=== PATIENT | female | born 1945 | race Caucasian/White ===

== ENCOUNTER 2018-03-07 06:50 | Day surgery (SDC) | payer MEDICARE, OTHER, SELFPAY ==
[2018-03-07] VITALS (7 sets, daily range): BP systolic 119–154; BP diastolic 52–98; PULSE 71–88; RESP 12–18; TEMP 36.3–37.7; O2SAT 92–95; BMI 36.1
--- NOTE | 2018-03-07 | LES_PTH ---
PATIENT: GAVIN LOPEZ LOC: [facility] [place] U#:[id number] AGE/SX: 72/F ROOM: RE03/07/[address]: Dr. Aleksey Acosta MD : 1945 BED: DIS: 03/07/2018 SPEC #: [id number] RECD: 03/07/18 08:52 STATUS: MILTON JOSE #: [id number] TU: 03/07/18 00:[address]: Aleksey Acosta DEPT: SURGICAL PATHOLOGY RECD BY: Joyce Martins ENTERED: 03/07/18 10:57 SP TYPE: Lesion OTHR DR: Dr. Bandar Alvares MD Tissues: A - Skin of forehead B - Skin of lip, NOS C - Skin of nose, NOS D - Skin of nose, NOS Procedures: Frozen Section (charge) Frozen Section Add'l ([facility]) Surgery Specimen Level IV HEADER OPERATION: Excision lesions, left nasal tip, right medial forehead, right upper lip PRE-OP DIAGNOSIS: Neoplasm of skin of nasal tip; Neoplasm of skin of forehead; Neoplasm of unspecified behavior of bone, soft tissue and skin TISSUE SUBMITTED: A - Right medial forehead by eyebrow collected at 0845, sent to lab for FS at 0847, B - Lesion right perialar/upper lip collected at 0850, sent to lab for FS at 0856, C - Lesion left nasal tip collected at 0852, sent to lab for FS at 0856, D - Basal cell cancer left nasal tip, suture at 12 o'clock FROZEN SECTION DIAGNOSIS A. Right medial forehead by eyebrow lesion, biopsy: Intradermal nevus. B. Lesion, perialar/upper lip area, biopsy: Intradermal nevus. C. Lesion, left nasal tip, biopsy: Basal cell carcinoma. Intradermal nevus. JOSEMANUEL:paola 03/07/18 MICROSCOPIC DIAGNOSIS A. Right medial forehead by eyebrow lesion, biopsy: Intradermal nevus. B. Lesion right perialar/upper lip area, biopsy: Intradermal nevus. C. Lesion at left nasal tip, biopsy: Basal cell carcinoma. Intradermal nevus. Solar elastosis. D. Basal cell carcinoma left nasal tip, excisional biopsy: Negative for residual carcinoma. Focal ulceration, consistent with site of specimen C. Solar elastosis. JOSEMANUEL:paola 03/10/18 MICROSCOPIC DESCRIPTION Slides are reviewed. GROSS DESCRIPTION A - Received fresh for frozen section diagnosis labeled with the patient's name is a specimen designated right medial forehead by right eyebrow. The specimen consists of a piece of bettencourt-white skin ellipse measuring 0.7 x 0.5 x 0.2 cm. The specimen is inked, bisected and submitted entirely for frozen section diagnosis in one cassette. / : 03/07/18 B - Received fresh for frozen section diagnosis labeled with the patient's name is a specimen designated lesion right perialar/upper lip area. The specimen consists of a piece of bettencourt-white skin measuring 0.5 x 0.5 x 0.2 cm. The specimen is submitted entirely for frozen section diagnosis in one cassette. / : 03/07/18 C - Received fresh for frozen section diagnosis labeled with the patient's name is a specimen designated lesion left nasal tip. The specimen consists of a piece of bettencourt-white skin measuring 1.2 x 1 x 0.2 cm. Two lesions are noted on the surface measuring 0.7 and 0.5 cm in greatest dimension. The specimen is inked, serially sectioned and submitted for frozen section diagnosis in two cassettes with each cassette containing one lesion. / : 03/07/18 D - Received in fixative is one container labeled with the patient's name and designated basal cell carcinoma left nasal tip, suture at 12 o'clock. The specimen consists of an ovoid piece of bettencourt-white skin measuring 1.7 x 1.5 cm and up to 0.3 cm in thickness. The specimen is inked as follows: 12-3 o'clock - black, 3-6 o'clock - blue, 6-9 o'clock - green and 9-12 o'clock - yellow. The specimen is serially sectioned and submitted entirely in two cassettes as follows: 1 - 12 and 6 o'clock margins, 2 - rest of the specimen. / : 03/07/18 TC:0 CPT: 04678 x4, 44398, 11601
[2018-03-07] MEDS: Silver Nitrate (BKC) 1 EACH (09:18)
[2018-03-07] MEDS: Mupirocin Ointment 22gm Tube 1 APPLIC (09:32)
--- NOTE | 2018-03-07 09:40 | OP.PN_ITS ---
Immediate Post-Op Note Date of Procedure: 03/07/18 Primary Surgeon/Physician: Aleksey Acosta paint [employer] worker: None Pre-Operative Diagnosis: 1. 1.6 mm lesion left nasal tip. 2. 7 mm lesion right medial forehead by the eyebrow. 3. 5 mm lesion right perialar/upper lip area. Post-Operative Diagnosis: 1. 1.6 mm basal cell carcinoma left nasal tip. 2. 7 mm intradermal nevus right medial forehead by the eyebrow. 3. 5 mm intradermal nevus right perialar/upper lip area. Surgery/Procedure Performed:: 1. Excision 1.6 mm basal cell carcinoma left nasal tip. 2. Intradermal excision 7 mm intradermal nevus right medial fo rehead by the eyebrow. 3. Intradermal excision 5 mm intradermal nevus right perialar/upper lip area. Description of Surgical Findings:: 72 year old woman presents for evaluation for TBSE. She has concerns about enlarging lesions on her left nasal tip, right medial forehead by the eyebrow, and the right perialar/upper lip area. They have become more raised in configuration and have developed irregular borders. She denies any trauma. She denies any fever. She denies any bleeding. The patient had these lesions excised and sent to Pathology as a frozen section. Frozen section showed intradermal nevi for the right medial forehead by the eyebrow lesion and the right perialar/upper lip area lesion. The left nasal tip lesion was a basal cell carcinoma. Today the patient underwent excision 1.6 mm basal cell carcinoma left nasal tip and intradermal excision 7 mm intradermal nevus right medial forehead by the eyebrow and intradermal excision 5 mm intradermal nevus right perialar/upper lip area. Frozen section left nasal tip - basal cell carcinoma. Frozen section right medial forehead by the eyebrow - intradermal nevus. Frozen section right perialar/upper lip area. Estimated Blood Loss: 15 ml. Specimen's removed: 1. Left nasal tip lesion to Pathology as a frozen section. 2. Right medial forehead by the eyebrow lesion to Pathology as a frozen section. 3. Right perialar/upper lip area to Pathology as a frozen section. 4. Basal cell carcinoma left nasal tip to Pathology. Drains: None. Type of Anesthesia:: General - Admit VTE Documentation VTE Present on Admission: No VTE Mechan Device Prophylaxis: SCD's VTE Pharm Prophylaxis ordered?: No
--- NOTE | 2018-03-07 09:53 | PCM.DC ---
You will use the following diet at home:: No restrictions Discharge Activity: May not drive while taking narcotic pain medications., May Shower - in two days from the neck down and wash face gently in the sink and wash hair gently in the sink until the nasal dressing is removed in the office., - - keep head elevated. no heavy lifting. May shower in (days): 2 - from the neck down. May resume sexual activity in: No Restrictions Ice area for (Minutes): 5 - as needed for facial swelling. Weight Bearing Status: Weight bearing as tolerated Lifting Restrictions: 20 lbs. Keep extremity elevated above heart level: - - elevate head. Call your doctor if your incision/area has: Continuous Slow Oozing, Sudden Increased Bleeding, Increased Pain/ Swelling, Increased Redness, Foul Smelling Discharge, Swelling at the incision site Call your doctor if you observe: Fever of 101 or Higher, Coldness, Increased Pain, Shortness of breath, Chest pain, Calf discomfort, Uncontrolled pain Suture Line Care: - - apply antibiotic ointment to the forehead and upper lip wounds daily. daily silver dressing changes to left nasal tip after operative dressing removed in the office. Change Dressing in (Days):: 3 - will change operative dressing in the office. Cleanse incision/area with: - - may shower in two days from the neck down. may get the nasal wound wet in the shower after the operative dressing is removed in the office. Allergies/Adverse Reactions: Allergies Sulfa (Sulfonamide Antibiotics) Allergy (Severe, Verified 03/07/18 07:29) ALLERGY acetaminophen [From Percocet] Allergy (Mild, Verified 03/07/18 07:29) Abd cramps/diarrhea oxycodone [From Percocet] Allergy (Mild, Verified 03/07/18 07:29) Abd cramps/diarrhea Medications to take at Discharge lovastatin 40 mg tablet 40 mg PO QDAY 12/25/17 multivitamin tablet 1 tab PO QDAY 12/25/17 pantoprazole 20 mg tablet,delayed release 20 mg PO QDAY 12/25/17 sertraline 100 mg tablet 100 mg PO QDAY 12/25/17 Albuterol Inhaler [Ventolin Hfa] 1 - 2 puff INHALATION Q4H PRN PRN 03/05/18 Omega3/Dha/Epa/Fish Oil/Vit D3 [Hyden-3 + Vitamin D3 Softgel] 1 each PO DAILY 03/05/18 Clindamycin HCl [Cleocin] 300 mg PO Q6H #21 cap 03/07/18 Lactobacillus Acidophilus/Fos [Acidophilus Probiotic Tablet] 1 ea PO BID #30 tab 03/07/18 Oxycodone HCl/Acetaminophen [Percocet 5/325] 1 - 2 tab PO 4X/DAY PRN PRN 4 Days #30 tab 03/07/18 The following prescriptions were given: Oxycodone HCl/Acetaminophen [Percocet 5/325] 1 - 2 tab PO 4X/DAY PRN PRN 4 Days #30 tab PRN Reason: Pain Lactobacillus Acidophilus/Fos [Acidophilus Probiotic Tablet] 1 ea PO BID #30 tab Clindamycin HCl [Cleocin] 300 mg PO Q6H #21 cap Primary Care Physician: Bandar Alvares MD [Primary Care Provider] - Test Results: Test results from this visit will be discussed in further detail at your follow-up appointment, if applicable. Please Follow Up With: Aleksey Acosta MD When: early next week. call [phone] for appt. Proposed Discharge Date: 03/07/18
--- NOTE | 2018-03-07 09:57 | DCINST_ITS ---
You will use the following diet at home:: No restrictions Discharge Activity: May not drive while taking narcotic pain medications., May Shower - in two days from the neck down and wash face gently in the sink and wash hair gently in the sink until the nasal dressing is removed in the office., - - keep head elevated. no heavy lifting. May shower in (days): 2 - from the neck down. May resume sexual activity in: No Restrictions Ice area for (Minutes): 5 - as needed for facial swelling. Weight Bearing Status: Weight bearing as tolerated Lifting Restrictions: 20 lbs. Keep extremity elevated above heart level: - - elevate head. Call your doctor if your incision/area has: Continuous Slow Oozing, Sudden Increased Bleeding, Increased Pain/ Swelling, Increased Redness, Foul Smelling Discharge, Swelling at the incision site Call your doctor if you observe: Fever of 101 or Higher, Coldness, Increased Pain, Shortness of breath, Chest pain, Calf discomfort, Uncontrolled pain Suture Line Care: - - apply antibiotic ointment to the forehead and upper lip wounds daily. daily silver dressing changes to left nasal tip after operative dressing removed in the office. Change Dressing in (Days):: 3 - will change operative dressing in the office. Cleanse incision/area with: - - may shower in two days from the neck down. may get the nasal wound wet in the shower after the operative dressing is removed in the office. Allergies/Adverse Reactions: Allergies Sulfa (Sulfonamide Antibiotics) Allergy (Severe, Verified 03/07/18 07:29) ALLERGY acetaminophen [From Percocet] Allergy (Mild, Verified 03/07/18 07:29) Abd cramps/diarrhea oxycodone [From Percocet] Allergy (Mild, Verified 03/07/18 07:29) Abd cramps/diarrhea Medications to take at Discharge lovastatin 40 mg tablet 40 mg PO QDAY 12/25/17 multivitamin tablet 1 tab PO QDAY 12/25/17 pantoprazole 20 mg tablet,delayed release 20 mg PO QDAY 12/25/17 sertraline 100 mg tablet 100 mg PO QDAY 12/25/17 Albuterol Inhaler [Ventolin Hfa] 1 - 2 puff INHALATION Q4H PRN PRN 03/05/18 Omega3/Dha/Epa/Fish Oil/Vit D3 [[place]-3 + Vitamin D3 Softgel] 1 each PO DAILY 03/05/18 Clindamycin HCl [Cleocin] 300 mg PO Q6H #21 cap 03/07/18 Lactobacillus Acidophilus/Fos [Acidophilus Probiotic Tablet] 1 ea PO BID #30 tab 03/07/18 Oxycodone HCl/Acetaminophen [Percocet 5/325] 1 - 2 tab PO 4X/DAY PRN PRN 4 Days #30 tab 03/07/18 The following prescriptions were given: Oxycodone HCl/Acetaminophen [Percocet 5/325] 1 - 2 tab PO 4X/DAY PRN PRN 4 Days #30 tab PRN Reason: Pain Lactobacillus Acidophilus/Fos [Acidophilus Probiotic Tablet] 1 ea PO BID #30 tab Clindamycin HCl [Cleocin] 300 mg PO Q6H #21 cap Primary Care Physician: Bandar Alvares MD [Primary Care Provider] - Test Results: Test results from this visit will be discussed in further detail at your follow- up appointment, if applicable. Please Follow Up With: Aleksey Acosta MD When: early next week. call [phone] for appt. Proposed Discharge Date: 03/07/18
--- NOTE | 2018-03-08 22:32 | OP.PCM_ITS ---
Report of Operation Date of Procedure: 03/07/18 Pre-Operative Diagnosis: 1. 1.6 mm lesion left nasal tip. 2. 7 mm lesion right medial forehead by the eyebrow. 3. 5 mm lesion right perialar/upper lip area. Post-Operative Diagnosis: 1. 1.6 mm basal cell carcinoma left nasal tip. 2. 7 mm intradermal nevus right medial forehead by the eyebrow. 3. 5 mm intradermal nevus right perialar/upper lip area. Surgery/Procedure Performed:: 1. Excision 1.6 mm basal cell carcinoma left nasal tip. 2. Intradermal excision 7 mm intradermal nevus right medial forehead by the eyebrow. 3. Intradermal excision 5 mm intradermal nevus right perialar/upper lip area. Description of Surgical Findings:: 72 year old woman presents for evaluation for TBSE. She has concerns about enlarging lesions on her left nasal tip, right medial forehead by the eyebrow, and the right perialar/upper lip area. They have become more raised in configuration and have developed irregular borders. She denies any trauma. She denies any fever. She denies any bleeding. Patient was informed of the risks and complications of the procedure including alternatives to surgery. These were discussed with the patient personally. Patient voices understanding and wishes to proceed. Some of the risks and complications were included in a form from the [employer]. Frozen section left nasal tip - basal cell carcinoma. Frozen section right medial forehead by the eyebrow - intradermal nevus. Frozen section right perialar/upper lip area - intradermal nevus. director of rehabilitation: None Type of Anesthesia:: General Specimen's removed: 1. Left nasal tip lesion to Pathology as a frozen section. 2. Right medial forehead by the eyebrow lesion to Pathology as a frozen secti on. 3. Right perialar/upper lip area to Pathology as a frozen section. 4. Basal cell carcinoma left nasal tip to Pathology. Drains: None. Estimated Blood Loss (mL): 15 ml. Description of Procedure: Patient was taken to OR in supine position and was placed under general anesthesia. The face was prepped and draped in the usual fashion. SCD's were placed for DVT prophylaxis. Perioperative antibiotics were given intravenously. Using xylocaine with epinephrine, the lesions on the left nasal tip, right medial forehead by the eyebrow, and right perialar/upper lip area were infiltrated. After waiting 5 minutes for the anesthetic to take effect, these three lesions were excised in an intradermal fashion and sent to Pathology as a frozen section. Frozen section showed basal cell carcinoma for the left nasal tip. The lesions right medial forehead by the eyebrow and right perialar/upper lip area were both intradermal nevi and no carcinoma seen. For the basal cell carcinoma left nasal tip, further excision will be done with a 3 mm margin in all directions thus making it a 2.2 cm excision. The excision extended into the subcutaneous tissue. A suture was placed at 12 oclock position for pathology orientation. The lesion was sent to Pathology for analysis to rule out carcinoma at the margins. Hemostasis was obtained with electrocautery. The wound was packed with Aquacel Silver. 4-0 Nylon suture was used for tie over stent suture dressing. For the right medial forehead by the eyebrow lesion and the right perialar/upper lip area lesion, hemostasis was obtained with silver nitrate chemical cauterization. Antibiotic ointment was applied. Patient tolerated the procedure well and was sent to PACU in satisfactory condition. Patient will be sent home on antibiotics and pain medication. Patient will keep her head elevated during the initial postop period. Patient will followup early next week for a wound check and for discussion of the pathology report. Will also instruct the patient on the Silver dressing changes. Once the pathology report is available, she will proceed with the first stage complex nasal reconstruction with a forehead flap and cartilage grafting for support. The excision today did not involve the nasal lining. Grafts/Implants Used: None. - Complications None. - Admit VTE Documentation VTE Present on Admission: No VTE Mechan Device Prophylaxis: SCD's VTE Pharm Prophylaxis ordered?: No Code Visit Surgery Charges CPT - 89421 ICD-10 - C44.311 88148 D22.39 64365 D22.0
== END 2018-03-07 12:10 | disposition home or self-care (01) ==
LOC: SDC 06:51 → AC 06:52
PROVIDERS: Family Provider Family Medicine; PCP Family Medicine; Referring Provider Surgery; Visit Provider Surgery
PROC: (CPT 11442; principal; 2018-03-07 08:20)
DX: C44.311 Basal cell carcinoma of skin of nose (principal); D22.39 Melanocytic nevi of other parts of face; D22.0 Melanocytic nevi of lip; D49.2 Neoplasm of unspecified behavior of bone, soft tissue, and skin; K21.9 Gastro-esophageal reflux disease without esophagitis; L57.8 Other skin changes due to chronic exposure to nonionizing radiation; W89.9XXA Exposure to unspecified man-made visible and ultraviolet light, initial encounter; Y93.9 Activity, unspecified; Y92.89 Other specified places as the place of occurrence of the external cause; Y99.9 Unspecified external cause status; L98.499 Non-pressure chronic ulcer of skin of other sites with unspecified severity; R35.0 Frequency of micturition; R32 Unspecified urinary incontinence
CPT/HCPCS: 00300; 11442; 11643; 88305; 88331; 88332; J7120; J2405

== ENCOUNTER 2018-04-03 17:22 | Observation (INO) | payer MEDICARE, OTHER, SELFPAY ==
--- NOTE | 2018-04-02 19:12 | HP.PCM_ITS ---
History and Physical Date of Admission: 04/03/18 Allergies Sulfa (Sulfonamide Antibiotics) Allergy (Severe, Verified 02/27/18 13:37) ALLERGY acetaminophen [From Percocet] Allergy (Mild, Verified 02/27/18 13:37) Abd cramps/diarrhea oxycodone [From Percocet] Allergy (Mild, Verified 02/27/18 13:37) Abd cramps/diarrhea Medications cholecalciferol (vitamin D3) 2,000 unit capsule 2,000 unit PO QDAY 12/25/17 [History Confirmed 02/27/18] lovastatin 40 mg tablet 40 mg PO QDAY 12/25/17 [History Confirmed 02/27/18] multivitamin tablet 1 tab PO QDAY 12/25/17 [History Confirmed 02/27/18] omega-3 fatty acids-fish oil 684 mg-1,200 mg capsule,delayed release cap PO .QD cap 12/25/17 [History Confirmed 02/27/18] pantoprazole 20 mg tablet,delayed release 20 mg PO QDAY 12/25/17 [History Confirmed 02/27/18] sertraline 100 mg tablet 100 mg PO QDAY 12/25/17 [History Confirmed 02/27/18] PFSH Medical History Anxiety and depression (Acute) Asthma (Acute) GERD (gastroesophageal reflux disease) (Acute) Murmur (Acute) Urinary tract infection (Acute) Surgical History Broken foot (Acute) Broken jaw (Acute) History of appendectomy (Acute) History of bladder surgery (Acute) History of tonsillectomy (Acute) Family History Mother History of blood clots Diabetes Heart disease Hypertension COPD (chronic obstructive pulmonary disease) Father Depression Hypertension Social History Smoking Status: Never smoker alcohol intake: current substance use type: does not use additional social history: DOES USE ASPIRIN DOES USE IBUPROFEN HPI HISTORY OF PRESENT ILLNESS 72 year old woman initially presented for evaluation for TBSE. She has concerns about enlarging lesions on her left nasal tip. It was biopsied and found to be a basal cell carcinoma. She underwent excision basal cell carcinoma left nasal tip on 03/07/18. The wound was left open until the final pathology was available. Pathology was negative for residual carcinoma and was completely excised. Wound care was started postop with Silver dressing changes. She presents today for the first stage of her complex nasal reconstruction with a forehead flap and cartilage grafting for support. REVIEW OF SYSTEMS General - Denies fever, fatigue, and weight loss. Eyes - Denies cataracts and glaucoma. ENT - Denies nasal congestion and sore throat. Endocrine - Has excessive thirst and urination. Skin - Denies skin cancer. Has enlarging lesions left nasal tip, right medial forehead by the eyebrow, and the right perialar/upper lip area. Musculoskeletal - Denies joint pain, joint stiffness, weakness of muscles and joints, back pain, and arthritis. Neuro - Denies headaches. Cardiovascular - Denies chest pain, fatigue, and shortness of breath with exertion. Psych - Denies anxiety and depression. Respiratory - Denies chronic cough. Has shortness of breath. Has asthma. Gastrointestinal - Denies nausea, vomiting, diarrhea, and constipation. Hematologic - Denies abnormal bruising and bleeding. Genitourinary - Denies hematuria. Has urinary frequency. Has incontinence. PHYSICAL EXAMINATION General - Alert and Oriented HEENT - PERRL. EOMI. Throat is clear. On the left nasal tip is a basal cell carcinoma wound that measured 2.2 cm initially and now measures 2 cm. Some healing has occurred. The wound is about 3 mm from the left nasal alar rim. Neck - Supple and nontender. No cervical adenopathy. No suspicious lesions noted. Lungs - Clear to auscultation. Heart - Regular rate and rhythm. Abdomen - Soft and nondistended. Extremities - FROM. No axillary adenopathy. Radial pulses are palpable. No suspicious lesions noted. Neuro - CN II-XII grossly intact. Psych - Normal mood and affect. ASSESSMENT 2.2 cm basal cell carcinoma wound left nasal tip and lateral sidewall. PLAN Patient presents today for the first stage of her complex nasal reconstruction which is formation of a forehead flap to provide soft tissue for the left nasal tip basal cell carcinoma wound defect. Will also need cartilage grafting for support. If we can preserve the nasal alar rim, we won't need any mucosal lining flaps. If the remaining tissue extending to the rim is removed with a partial rhinectomy, then mucosal lining flaps would be needed and mucoperichondrial flaps may be needed as well. Skin grafting is another choice as well. Surgery will be done under general anesthesia with a surgical observation overnight stay in the hospital. The second stage of the complex nasal reconstruction will be in about 3 weeks with a division and inset of the flap and will be done on an outpatient basis under general anesthesia. Patient was informed of the risks and complications of the procedure including alternatives to surgery. These were discussed with the patient personally. Patient voices understanding and wishes to proceed. Some of the risks and complications were included in a form from the [employer].
[2018-04-03] VITALS (10 sets, daily range): BP systolic 121–181; BP diastolic 52–67; PULSE 68–90; RESP 12–18; TEMP 36.3–37.1; O2SAT 91–99; BMI 36.1; BMI 37.1
--- NOTE | 2018-04-03 | LES_PTH ---
PATIENT: GAVIN LOPEZ LOC: [facility] U#:[id number] AGE/SX: 72/F ROOM: IL324 RE04/03/[address]: Dr. Aleksey Acosta MD : 1945 BED: 1 DIS: 04/04/2018 SPEC #: [id number] RECD: 04/04/18 12:09 STATUS: MILTON REAlexis #: [id number] TU: 04/03/18 00:[address]: Aleksey Acosta DEPT: SURGICAL PATHOLOGY RECD BY: Moshe Mercado ENTERED: 04/04/18 12:09 SP TYPE: Lesion OTHR DR: Dr. Bandar Alvares MD Tissues: Skin of nose, NOS Procedures: Surgery Specimen Level IV HEADER OPERATION: Left nasal tip excisional debridement of basal cell carcinoma PRE-OP DIAGNOSIS: Basal cell carcinoma wound left nasal tip TISSUE SUBMITTED: Basal cell carcinoma left nasal tip and side wall, suture at 12 o'clock MICROSCOPIC DIAGNOSIS Basal cell carcinoma left nasal tip and side wall, excisional biopsy: Negative for residual carcinoma. Focal chronic inflammation and foreign body giant cell reaction. Solar elastosis. See comment. SJ:paola 04/07/18 COMMENT The specimen also shows pieces of cartilage. Please make reference to previous specimen ([id number]), lesion at left nasal tip, biopsy with diagnosis of basal cell carcinoma and basal cell carcinoma left nasal tip, excisional biopsy with diagnosis of negative for residual carcinoma. MICROSCOPIC DESCRIPTION Slides are reviewed. GROSS DESCRIPTION Received in fixative is one container labeled with the patient's name and designated basal cell carcinoma left nasal tip and side wall, suture at 12 o'clock. The specimen consists of a thin strip of bettencourt-white skin, C-shape, measuring 2 x 0.3 cm and up to 0.4 cm in thickness. The specimen is oriented by a suture at 12 o'clock. The specimen is inked as follows: 12 o'clock margin - black, 6 o'clock margin - blue. Also present in the container are multiple fragments of bettencourt-white skin and soft tissue measuring in aggregate 1.5 x 0.5 x 0.1 cm. The entire specimen is submitted in two cassettes as follows: 1 - skin piece to be serially sectioned at the time of the embedding, 2 - rest of the specimen. / JOSEMANUEL:paola 04/04/18 TC:5 CPT: 03465
--- NOTE | 2018-04-03 08:04 | EKG12_ITS ---
Test Reason : PRE-OP Blood Pressure : / mmHG Vent. Rate : 067 BPM Atrial Rate : 067 BPM P-R Int : 172 ms QRS Dur : 092 ms QT Int : 424 ms P-R-T Axes : 056 031 064 degrees QTc Int : 448 ms Normal sinus rhythm with sinus arrhythmia Normal ECG No previous ECGs available Confirmed by PAULINE UMAÑA ([id number]), editor sound LAURIE ESCOBEDO ([id number]) on 04/08/2018 11:20:04 AM Referred By: Aleksey Acosta Confirmed By:PAULINE UMAÑA
[2018-04-03] MEDS: Mupirocin Ointment 22gm Tube 1 APPLIC (09:50)
[2018-04-03] MEDS: Methylene Blue 1% 100 MG/10 ML VIAL (11:05)
[2018-04-03] MEDS: Oxymetazoline 0.05% 1 SPRAY SPRAY.BTL 15 SPRAY (13:00)
--- NOTE | 2018-04-03 14:12 | PCM.IMDPSTOP ---
Immediate Post-Op Note Date of Procedure: 04/03/18 Primary Surgeon/Physician: Aleksey Acosta weatherization director: None Pre-Operative Diagnosis: 2.2 cm basal cell carcinoma wound left nasal tip and lateral sidewall. Post-Operative Diagnosis: Same. Surgery/Procedure Performed:: 1. Surgical preparation basal cell carcinoma wound left nasal tip and lateral sidewall with excisional debridement. 2. 1st stage complex nasal reconstruction with right paramedian forehead flap and cartilage grafting from left ear. Description of Surgical Findings:: 72 year old woman initially presented for evaluation for TBSE. She has concerns about enlarging lesions on her left nasal tip. It was biopsied and found to be a basal cell carcinoma. She underwent excision basal cell carcinoma left nasal tip on 03/07/18. The wound was left open until the final pathology was available. Pathology was negative for residual carcinoma and was completely excised. Wound care was started postop with Silver dressing changes. She presents today for the first stage of her complex nasal reconstruction with a forehead flap and cartilage grafting for support. Today the patient underwent surgical preparation basal cell carcinoma wound left nasal tip and lateral sidewall with excisional debridement and 1st stage complex nasal reconstruction with right paramedian forehead flap and cartilage grafting from left ear. IV Fluids - 1800 ml. Urine Output - 1400 ml. Size of defect upper forehead - 2.5 x 1.5 cm. I used Samara absorbable hemostat. Reference Number - [id number]. Lot Number - [id number]. Expiration - December 05, 2022. Estimated Blood Loss: 25 ml. Specimen's removed: Basal cell carcinoma wound left nasal tip and lateral sidewall to Pathology. Drains: None. Type of Anesthesia:: General - Admit VTE Documentation VTE Present on Admission: No VTE Mechan Device Prophylaxis: SCD's VTE Pharm Prophylaxis ordered?: Yes
--- NOTE | 2018-04-03 14:16 | OP.PN_ITS ---
Immediate Post-Op Note Date of Procedure: 04/03/18 Primary Surgeon/Physician: Aleksey Acosta under cutter: None Pre-Operative Diagnosis: 2.2 cm basal cell carcinoma wound left nasal tip and lateral sidewall. Post-Operative Diagnosis: Same. Surgery/Procedure Performed:: 1. Surgical preparation basal cell carcinoma wound left nasal tip and lateral sidewall with excisional debridement. 2. 1st stage complex nasal reconstruction with right paramedian forehead flap and cartilage grafting from left ear. Description of Surgical Findings:: 72 year old woman initially presented for evaluation for TBSE. She has concerns about enlarging lesions on her left nasal tip. It was biopsied and found to be a basal cell carcinoma. She underwent excision basal cell carcinoma left nasal tip on 03/07/18. The wound was left open until the final pathology was available. Pathology was negative for residual carcinoma and was completely excised. Wound care was started postop with Silver dressing changes. She presents today for the first stage of her complex nasal reconstruction with a forehead flap and cartilage grafting for support. Today the patient underwent surgical preparation basal cell carcinoma wound left nasal tip and lateral sidewall with excisional debridement and 1st stage complex nasal reconstruction with right paramedian forehead flap and cartilage grafting from left ear. IV Fluids - 1800 ml. Urine Output - 1400 ml. Size of defect upper forehead - 2.5 x 1.5 cm. I used Samara absorbable hemostat. Reference Number - [id number]. Lot Number - [id number]. Expiration - December 05, 2022. Estimated Blood Loss: 25 ml. Specimen's removed: Basal cell carcinoma wound left nasal tip and lateral sidewall to Pathology. Drains: None. Type of Anesthesia:: General - Admit VTE Documentation VTE Present on Admission: No VTE Mechan Device Prophylaxis: SCD's VTE Pharm Prophylaxis ordered?: Yes
--- NOTE | 2018-04-03 17:44 | PCM.OPRPT ---
Report of Operation Date of Procedure: 04/03/18 Pre-Operative Diagnosis: 2.2 cm basal cell carcinoma wound left nasal tip and lateral sidewall. Post-Operative Diagnosis: Same. Surgery/Procedure Performed:: 1. Surgical preparation basal cell carcinoma wound left nasal tip and lateral sidewall with excisional debridement. 2. 1st stage complex nasal reconstruction with right paramedian forehead flap and cartilage grafting from left ear. Description of Surgical Findings:: 72 year old woman initially presented for evaluation for TBSE. She has concerns about enlarging lesions on her left nasal tip. It was biopsied and found to be a basal cell carcinoma. She underwent excision basal cell carcinoma left nasal tip on 03/07/18. The wound was left open until the final pathology was available. Pathology was negative for residual carcinoma and was completely excised. Wound care was started postop with Silver dressing changes. She presents today for the first stage of her complex nasal reconstruction with a forehead flap and cartilage grafting for support. Today the patient underwent surgical preparation basal cell carcinoma wound left nasal tip and lateral sidewall with excisional debridement and 1st stage complex nasal reconstruction with right paramedian forehead flap and cartilage grafting from left ear. IV Fluids - 1800 ml. Urine Output - 1400 ml. Size of defect upper forehead - 2.5 x 1.5 cm. I used Samara absorbable hemostat. Reference Number - [id number]. Lot Number - [id number]. Expiration - December 05, 2022. look out tower fire watcher: None Type of Anesthesia:: General Specimen's removed: Basal cell carcinoma wound left nasal tip and lateral sidewall to Pathology. Drains: None. Estimated Blood Loss (mL): 25 ml. Fluids Replaced: 3200 ml (IV Fluids 1800ml, Urine Output 1400 ml). Description of Procedure: Patient was taken to OR in supine position and was placed under general anesthesia. The face and ears were prepped and draped in the usual fashion. SCD's were placed for DVT prophylaxis. Perioperative antibiotics were given intravenously. Using xylocaine with epinephrine, the left nasal tip and lateral sidewall wound was infiltrated. After waiting 5 minutes for the anesthetic to take effect, I proceeded with excisional debridement of the basal cell carcinoma wound down to the cartilage. Hemostasis was obtained with electrocautery. The debrided tissue was sent to Pathology for analysis. There was a small rent in the intranasal mucosa which was primarily repaired with 5-0 Chromic simple interrupted sutures. I took the foil from the chromic suture package and used it as my template of the nasal wound. I took a gauze and placed it in the supramedial aspect right eyebrow as my turning point for the flap to check the length needed for the forehead flap. I rotated the gauze to the nasal wound and then rotated the gauze onto the forehead. I placed the foil template at the end of the gauze rotation and oriented the foil package to make sure it would rotate exactly into the nasal wound. The length of the flap necessitated going into the frontal scalp hairline a little bit. If hair growth becomes an issue on the nose in the future, can then proceed with laser hair removal. I marked the right paramedian forehead flap with a flap base of 1.5 cm at the level of the medial eyebrow. I then used a Doppler to locate the supratrochlear artery. The signal was faint. Using xylocaine and epinephrine, I infiltrated the markings. After waiting 5 minutes for the anesthetic to take effect, I made incisions in the hairline around the template and then vertically onto the forehead. I freed up the distal portion of the flap in the subcutaneous tissue. This would allow some soft tissue on the forehead for wound care since this distal portion of the wound won't be closed and wound care will be started with Silver dressing changes. When I got to the end of the template marking, I deepened the dissection down to the periosteum to maintain the vascularity of the flap. When I got the supra-orbital ridge, I located the artery and dissected deep to it. Some of the ict support and test engineers muscle was incised to get additional length of the flap for rotation into the nasal defect with minimal tension. This also required incision into the eyebrow as well. After rotation of the flap clockwise into the defect, there was minimal tension on the flap and minimal distortion. There was also no kinking of the flap at the pivot point. I thinned out the distal portion of the flap in a conservative manner for inset into the nasal wound. After healing has occurred, if there is too much fullness in the flap, additional defatting of the flap can be done in the future. I didn't want to be too aggressive at this time and risk compromising the flap. I then undermined the forehead skin at the level of the periosteum to help with wound closure. Hemostasis was obtained with electrocautery. The forehead wound was sprayed with Samara absorbable hemostat to minimize seroma formation postoperatively. The forehead wound was then closed in multiple layers with 3-0 Vicryl figure of eight interrupted sutures for the deep muscle and fascia and with subcutaneous tissue and deep dermis. The skin was approximated with 4-0 Prolene vertical mattress interrupted sutures. I left the distal wound opened into the frontal hairline and packed it with a Silver dressing. This forehead wound measured 2.5 x 1.5 cm. For the nasal wound, there was no lining defect so no mucosal flaps or mucoperichondrial flaps would be necessary. However a cartilage graft would be necessary for support. I infiltrated the conchal area left ear with xylocaine and epinephrine. After waiting 5 minutes for the anesthetic to take effect, A longitudinal incision was made down to the cartilage. Incision was made in the perichondrium and a rectangular piece of cartilage was harvested and measured 2.2 cm. Hemostasis was obtained with electrocautery. I closed the left ear defect with 5-0 Monocryl simple interrupted sutures. I placed antibiotic ointment on the suture line followed by a cotton ball soaked in saline and secured to the conchal area with 3-0 Nylon tie over stent suture dressing. The cartilage was placed in the nasal wound and secured to the lateral nasal tissue with 6-0 PDS horizontal mattress sutures. I also secured the cartilage to the lower lateral cartilage medially with 6-0 PDS horizontal mattress sutures. Additional 6-0 PDS horizontal mattress sutures were also used to stabilize the cartilage graft to the inferior aspect of the upper lateral cartilage. The forehead flap was then placed into the nasal defect and sutured to the nasal skin edges with 5-0 Monocryl vertical mattress interrupted sutures. At the end of the procedure, the flap was pink and soft with no evidence of vascular compromise. She will be given Solu-Medrol postoperatively to minimize swelling on the vascular pedicle. I dressed the undersurface of the pedicle with antibiotic ointment and wrapped with xeroform gauze and dry gauze. Antibiotic ointment was applied to the suture line on the nose and the suture line on the forehead. This was followed by a gauze dressing on the forehead. Patient tolerated the procedure well and was sent to PACU in satisfactory condition. Patient will be sent upstairs for continued postop care. She will keep her head elevated during the initial postop period. Will plan the second stage of the complex nasal reconstruction with division and inset of the forehead flap. Grafts/Implants Used: None. - Complications None. - Admit VTE Documentation VTE Present on Admission: No VTE Mechan Device Prophylaxis: SCD's VTE Pharm Prophylaxis ordered?: Yes Code Visit Surgery Charges CPT - 40951 ICD-10 - C44.311, S01.20xA 26216 C44.311, S01.20xA
[2018-04-03] MEDS: MethylPREDNISolone 125 MG/2 ML Vial IV ×2 (17:58→21:52)
[2018-04-03] MEDS: Atorvastatin Calcium 10 MG Tablet PO (21:52)
[2018-04-03] MEDS: Docusate Sodium 100 MG Capsule PO (21:52)
[2018-04-04 02:00] VITALS: BP 135/68; PULSE 96; RESP 18; TEMP 37.3; O2SAT 94
[2018-04-04] MEDS: MethylPREDNISolone 125 MG/2 ML Vial IV (05:03)
[2018-04-04] MEDS: Enoxaparin 40 MG/0.4 ML Syringe SC (05:03)
[2018-04-04] MEDS: Lactated Ringers 1,000 ML 60 ML IV (05:04)
[2018-04-04 08:00] VITALS: BP 144/58; PULSE 89; RESP 18; TEMP 36.9; O2SAT 93
[2018-04-04] MEDS: Docusate Sodium 100 MG Capsule PO (08:09)
[2018-04-04 08:10] LABS: Hemoglobin 12.5 g/dl (12.0-15.0); Mean Corp Hgb Conc 32.9 g/gl (32-36); Mean Corpuscular Hgb 29.7 pg (27.0-32.0); Mean Corpuscular Volume 90.3 fL (81-99); Mean Platelet Vol. 11.2 fl (6.2-12.0); Platelet Count 278 K/mm3 (150-450); RBC Distribution Width CV 12.9 % (11.6-14.6); RBC Distribution Width SD 42.3 fl (35.1-43.9); Red Blood Count 4.21 M/mm3 (4.2-5.4); White Blood Count 18.7 K/mm3 (4.4-11.0)
[2018-04-04] MEDS: Multivitamins,Therapeutic Tablet 1 TABLET PO (08:10)
[2018-04-04] MEDS: Pantoprazole Sodium 20 MG Tablet PO (08:10)
[2018-04-04] MEDS: Sertraline 100 MG Tablet PO (08:10)
[2018-04-04 08:12] LABS: Scan Indicated on CBC? Y/N NO
[2018-04-04 08:37] LABS: Anion Gap 10 (5-15); BUN 17 mg/dL (7-18); BUN/Creat Ratio 14.7 RATIO (10-20); Calcium,Total 8.9 mg/dL (8.5-10.1); Chloride 102 mmol/L (98-107); Creatinine, Serum 1.16 mg/dL (0.55-1.02); EST Glomerular Filtration Rate 49 mL/min (>60); Est Glom Filt Rate - Afr Amer 59 mL/min (>60); Estimated Creatinine Clearance 37.33 ml/min; Glucose 173 mg/dL (74-106); Potassium 3.9 mmol/L (3.5-5.1); Prealbumin 26.7 mg/dL (20.0-40.0); Sodium Level 138 mmol/L (136-145)
[2018-04-04 14:37] VITALS: BP 152/78; PULSE 78; RESP 20; TEMP 36.6; O2SAT 100
--- NOTE | 2018-04-04 14:44 | OP.PCM_ITS ---
Report of Operation Date of Procedure: 04/03/18 Pre-Operative Diagnosis: 2.2 cm basal cell carcinoma wound left nasal tip and lateral sidewall. Post-Operative Diagnosis: Same. Surgery/Procedure Performed:: 1. Surgical preparation basal cell carcinoma wound left nasal tip and lateral sidewall with excisional debridement. 2. 1st stage complex nasal reconstruction with right paramedian forehead flap and cartilage grafting from left ear. Description of Surgical Findings:: 72 year old woman initially presented for evaluation for TBSE. She has concerns about enlarging lesions on her left nasal tip. It was biopsied and found to be a basal cell carcinoma. She underwent excision basal cell carcinoma left nasal tip on 03/07/18. The wound was left open until the final pathology was available. Pathology was negative for residual carcinoma and was completely excised. Wound care was started postop with Silver dressing changes. She presents today for the first stage of her complex nasal reconstruction with a forehead flap and cartilage grafting for support. Today the patient underwent surgical preparation basal cell carcinoma wound left nasal tip and lateral sidewall with excisional debridement and 1st stage complex nasal reconstruction with right paramedian forehead flap and cartilage grafting from left ear. IV Fluids - 1800 ml. Urine Output - 1400 ml. Size of defect upper forehead - 2.5 x 1.5 cm. I used Samara absorbable hemostat. Reference Number - [id number]. Lot Number - [id number]. Expiration - December 05, 2022. volunteer services manager: None Type of Anesthesia:: General Specimen's removed: Basal cell carcinoma wound left nasal tip and lateral sidewall to Pathology. Drains: None. Estimated Blood Loss (mL): 25 ml. Fluids Replaced: 3200 ml (IV Fluids 1800ml, Urine Output 1400 ml). Description of Procedure: Patient was taken to OR in supine position and was placed under general anesthesia. The face and ears were prepped and draped in the usual fashion. SCD's were placed for DVT prophylaxis. Perioperative antibiotics were given intravenously. Using xylocaine with epinephrine, the left nasal tip and lateral sidewall wound was infiltrated. After waiting 5 minutes for the anesthetic to take effect, I proceeded with excisional debridement of the basal cell carcinoma wound down to the cartilage. Hemostasis was obtained with electrocautery. The debrided tissue was sent to Pathology for analysis. There was a small rent in the intranasal mucosa which was primarily repaired with 5-0 Chromic simple interrupted sutures. I took the foil from the chromic suture package and used it as my template of the nasal wound. I took a gauze and placed it in the supramedial aspect right eyebrow as my turning point for the flap to check the length needed for the forehead flap. I rotated the gauze to the nasal wound and then rotated the gauze onto the forehead. I placed the foil template at the end of the gauze rotation and oriented the foil package to make sure it would rotate exactly into the nasal wound. The length of the flap necessitated going into the frontal scalp hairline a little bit. If hair growth becomes an issue on the nose in the future, can then proceed with laser hair removal. I marked the righ t paramedian forehead flap with a flap base of 1.5 cm at the level of the medial eyebrow. I then used a Doppler to locate the supratrochlear artery. The signal was faint. Using xylocaine and epinephrine, I infiltrated the markings. After waiting 5 minutes for the anesthetic to take effect, I made incisions in the hairline around the template and then vertically onto the forehead. I freed up the distal portion of the flap in the subcutaneous tissue. This would allow some soft tissue on the forehead for wound care since this distal portion of the wound won't be closed and wound care will be started with Silver dressing changes. When I got to the end of the template marking, I deepened the dissection down to the periosteum to maintain the vascularity of the flap. When I got the supra-orbital ridge, I located the artery and dissected deep to it. Some of the administrator muscle was incised to get additional length of the flap for rotation into the nasal defect with minimal tension. This also required incision into the eyebrow as well. After rotation of the flap clockwise into the defect, there was minimal tension on the flap and minimal distortion. There was also no kinking of the flap at the pivot point. I thinned out the distal portion of the flap in a conservative manner for inset into the nasal wound. After healing has occurred, if there is too much fullness in the flap, additional defatting of the flap can be done in the future. I didn't want to be too aggressive at this time and risk compromising the flap. I then undermined the forehead skin at the level of the periosteum to help with wound closure. Hemostasis was obtained with electrocautery. The forehead wound was sprayed with Samara absorbable hemostat to minimize seroma formation postoperatively. T he forehead wound was then closed in multiple layers with 3-0 Vicryl figure of eight interrupted sutures for the deep muscle and fascia and with subcutaneous tissue and deep dermis. The skin was approximated with 4-0 Prolene vertical mattress interrupted sutures. I left the distal wound opened into the frontal hairline and packed it with a Silver dressing. This forehead wound measured 2.5 x 1.5 cm. For the nasal wound, there was no lining defect so no mucosal flaps or mucoperichondrial flaps would be necessary. However a cartilage graft would be necessary for support. I infiltrated the conchal area left ear with xylocaine and epinephrine. After waiting 5 minutes for the anesthetic to take effect, A longitudinal incision was made down to the cartilage. Incision was made in the perichondrium and a rectangular piece of cartilage was harvested and measured 2.2 cm. Hemostasis was obtained with electrocautery. I closed the left ear defect with 5-0 Monocryl simple interrupted sutures. I placed antibiotic ointment on the suture line followed by a cotton ball soaked in saline and secured to the conchal area with 3-0 Nylon tie over stent suture dressing. The cartilage was placed in the nasal wound and secured to the lateral nasal tissue with 6-0 PDS horizontal mattress sutures. I also secured the cartilage to the lower lateral cartilage medially with 6-0 PDS horizontal mattress sutures. Additional 6-0 PDS horizontal mattress sutures were also used to stabilize the cartilage graft to the inferior aspect of the upper lateral cartilage. The forehead flap was then placed into the nasal defect and sutured to the nasal skin edges with 5-0 Monocryl vertical mattress interrupted sutures. At the end of the procedure, the flap was pink and soft with no evidence of vascular compromise. She will be given Solu-Medrol postoperatively to minimize swelling on the vascular pedicle. I dressed the undersurface of the pedicle with antibiotic ointment and wrapped with xeroform gauze and dry gauze. Antibiotic ointment was applied to the suture line on the nose and the suture line on the forehead. This was followed by a gauze dressing on the forehead. Patient tolerated the procedure well and was sent to PACU in satisfactory condition. Patient will be sent upstairs for continued postop care. She will keep her head elevated during the initial postop period. Will plan the second stage of the complex nasal reconstruction with division and inset of the forehead flap. Grafts/Implants Used: None. - Complications None. - Admit VTE Documentation VTE Present on Admission: No VTE Mechan Device Prophylaxis: SCD's VTE Pharm Prophylaxis ordered?: Yes Code Visit Surgery Charges CPT - 27608 ICD-10 - C44.311, S01.20xA 51642 C44.311, S01.20xA
--- NOTE | 2018-04-04 15:19 | PCM.PN.SRG ---
Subjective: Postop #1 Patient is resting comfortably. Tolerating po analgesia. - Physical Exam General: Alert, Oriented x3 HEENT: PERRLA, EOMI Oral: Moist Mucosa Neck: Supple Skin: Ulcer/ Wound - forehead wound is stable. No bleeding noted. Redressed with Silver dressing., Incision - Nasal incision is dry and intact. Forehead flap is pink and soft with no evidence of vascular compromise. Forehead incision is dry and intact. Left ear dressing is dry and intact. Neurological: Cranial nerves II-XII grossly intact Psych/Mental Status: Normal Affect, Appropriate Vital Signs Temp Pulse Resp BP Pulse Ox 98 F 78 20 H 152/78 H 100 04/04/18 14:37 04/04/18 14:37 04/04/18 14:37 04/04/18 14:37 04/04/18 14:37 Oxygen Flow Rate (L/min) 2 Oxygen Delivery Method Room Air Weight: 209 lb 10.554 oz Body Mass Index (BMI) 37.1 Intake and Output for Last 24 Hours 04/02/18 04/03/18 04/04/18 23:59 23:59 23:59 Intake Total 4464 / 4464 2397 / 2397 Output Total 3450 / 3450 1600 / 1600 Balance 1014 / 1014 797 / 797 Laboratory Tests Past 24 Hrs 04/04/18 04/04/18 07:50 07:50 WBC 18.7 H RBC 4.21 Hgb 12.5 Hct 38.0 MCV 90.3 MCH 29.7 MCHC 32.9 RDW 12.9 RDW Differential 42.3 Plt Count 278 MPV 11.2 Sodium 138 Potassium 3.9 Chloride 102 Carbon Dioxide 26.0 Anion Gap 10 BUN 17 Creatinine 1.16 H Estim Creat Clear Calc 37.33 Est GFR (MDRD) Af Amer 59 L Est GFR (MDRD) Non-Af 49 L BUN/Creatinine Ratio 14.7 Glucose 173 H Calcium 8.9 Prealbumin 26.7 Medical Necessity - Tobacco Use Smoking Status: Never smoker Assessment/Plan All Active Problems (Last Updated 12/25/17 @ 14:38 by Hui Lara) Open wound of nose (Acute) 1. 2.2 cm basal cell carcinoma wound left nasal tip and lateral sidewall. 2. s/p surgical preparation basal cell carcinoma wound left nasal tip and lateral sidewall with excisional debridement and 1st stage complex nasal reconstruction with right paramedian forehead flap and cartilage grafting from left ear. Forehead flap is pink and soft with no evidence of vascular compromise. Continue antibiotic ointment daily to the suture lines. Continue Silver dressing changes to the forehead wound daily. Encourage nutritional supplementation with protein to help the healing process. Discharge home today. Continue Cleocin for 5 days. Wrote script for Cleocin. Keep head elevated. Continue lifting restriction. Wrote script for Percocet for pain (30 tabs). Followup office Saturday04/07/18 for a dressing change.
--- NOTE | 2018-04-04 15:24 | PCM.DC ---
You will use the following diet at home:: No restrictions Discharge Activity: May not drive while taking narcotic pain medications., May Shower - on the days at the time of the dressing changes., - - keep head elevated. no heavy lifting. May shower in (days): 3 - after the dressing change is shown to the patient and family in the office. May resume sexual activity in: 10-14 days Weight Bearing Status: Weight bearing as tolerated Lifting Restrictions: 10 lbs Keep extremity elevated above heart level: - - elevate head. Call your doctor if your incision/area has: Continuous Slow Oozing, Sudden Increased Bleeding, Increased Pain/ Swelling, Increased Redness, Foul Smelling Discharge, Swelling at the incision site Call your doctor if you observe: Fever of 101 or Higher, Coldness, Increased Pain, Shortness of breath, Chest pain, Calf discomfort, Uncontrolled pain Suture Line Care: - - apply bactroban ointment to the suture line daily. apply aquacel silver to the upper forehead wound daily. will change the yellow xeroform gauze in the office on Saturday. Change Dressing in (Days):: 3 - will change in office initially. Cleanse incision/area with: - - may get incisions and wounds wet in the office after first office visit at the time of the dressing changes. Allergies/Adverse Reactions: Allergies Sulfa (Sulfonamide Antibiotics) Allergy (Severe, Verified 03/31/18 08:11) ALLERGY oxycodone [From Percocet] Allergy (Mild, Verified 03/31/18 08:11) Abd cramps/diarrhea Medications to take at Discharge lovastatin 40 mg tablet 40 mg PO QDAY 12/25/17 multivitamin tablet 1 tab PO QDAY 12/25/17 pantoprazole 20 mg tablet,delayed release 20 mg PO QDAY 12/25/17 sertraline 100 mg tablet 100 mg PO QDAY 12/25/17 Albuterol Inhaler [Ventolin Hfa] 1 - 2 puff INHALATION Q4H PRN PRN 03/05/18 Omega3/Dha/Epa/Fish Oil/Vit D3 [[place]-3 + Vitamin D3 Softgel] 1 ea PO DAILY 03/05/18 Atorvastatin Calcium [Lipitor] 10 mg PO QHS tablet 04/04/18 Clindamycin HCl [Cleocin] 300 mg PO TID #15 cap 04/04/18 Lactobacillus Acidophilus/Fos [Acidophilus Probiotic Tablet] 1 ea PO BID #10 tab 04/04/18 Oxycodone HCl/Acetaminophen [Percocet 5/325] 1 - 2 tab PO 4X/DAY PRN PRN 4 Days #30 tab 04/04/18 The following prescriptions were given: Oxycodone HCl/Acetaminophen [Percocet 5/325] 1 - 2 tab PO 4X/DAY PRN PRN 4 Days #30 tab PRN Reason: Pain Lactobacillus Acidophilus/Fos [Acidophilus Probiotic Tablet] 1 ea PO BID #10 tab Clindamycin HCl [Cleocin] 300 mg PO TID #15 cap Primary Care Physician: Bandar Alvares MD [Primary Care Provider] - Test Results: Test results from this visit will be discussed in further detail at your follow-up appointment, if applicable. Please Follow Up With: Aleksey Acosta MD When: Saturday04/07/18 at 330pm. call [phone] if any questions. Proposed Discharge Date: 04/04/18
--- NOTE | 2018-04-04 15:29 | DCINST_ITS ---
You will use the following diet at home:: No restrictions Discharge Activity: May not drive while taking narcotic pain medications., May Shower - on the days at the time of the dressing changes., - - keep head elevated. no heavy lifting. May shower in (days): 3 - after the dressing change is shown to the patient and family in the office. May resume sexual activity in: 10-14 days Weight Bearing Status: Weight bearing as tolerated Lifting Restrictions: 10 lbs Keep extremity elevated above heart level: - - elevate head. Call your doctor if your incision/area has: Continuous Slow Oozing, Sudden Increased Bleeding, Increased Pain/ Swelling, Increased Redness, Foul Smelling Discharge, Swelling at the incision site Call your doctor if you observe: Fever of 101 or Higher, Coldness, Increased Pain, Shortness of breath, Chest pain, Calf discomfort, Uncontrolled pain Suture Line Care: - - apply bactroban ointment to the suture line daily. apply aquacel silver to the upper forehead wound daily. will change the yellow xeroform gauze in the office on Saturday. Change Dressing in (Days):: 3 - will change in office initially. Cleanse incision/area with: - - may get incisions and wounds wet in the office after first office visit at the time of the dressing changes. Allergies/Adverse Reactions: Allergies Sulfa (Sulfonamide Antibiotics) Allergy (Severe, Verified 03/31/18 08:11) ALLERGY oxycodone [From Percocet] Allergy (Mild, Verified 03/31/18 08:11) Abd cramps/diarrhea Medications to take at Discharge lovastatin 40 mg tablet 40 mg PO QDAY 12/25/17 multivitamin tablet 1 tab PO QDAY 12/25/17 pantoprazole 20 mg tablet,delayed release 20 mg PO QDAY 12/25/17 sertraline 100 mg tablet 100 mg PO QDAY 12/25/17 Albuterol Inhaler [Ventolin Hfa] 1 - 2 puff INHALATION Q4H PRN PRN 03/05/18 Omega3/Dha/Epa/Fish Oil/Vit D3 [[place]-3 + Vitamin D3 Softgel] 1 ea PO DAILY 03/05/18 Atorvastatin Calcium [Lipitor] 10 mg PO QHS tablet 04/04/18 Clindamycin HCl [Cleocin] 300 mg PO TID #15 cap 04/04/18 Lactobacillus Acidophilus/Fos [Acidophilus Probiotic Tablet] 1 ea PO BID #10 tab 04/04/18 Oxycodone HCl/Acetaminophen [Percocet 5/325] 1 - 2 tab PO 4X/DAY PRN PRN 4 Days #30 tab 04/04/18 The following prescriptions were given: Oxycodone HCl/Acetaminophen [Percocet 5/325] 1 - 2 tab PO 4X/DAY PRN PRN 4 Days #30 tab PRN Reason: Pain Lactobacillus Acidophilus/Fos [Acidophilus Probiotic Tablet] 1 ea PO BID #10 tab Clindamycin HCl [Cleocin] 300 mg PO TID #15 cap Primary Care Physician: Bandar Alvares MD [Primary Care Provider] - Test Results: Test results from this visit will be discussed in further detail at your follow- up appointment, if applicable. Please Follow Up With: Aleksey Acosta MD When: Saturday04/07/18 at 330pm. call [phone] if any questions. Proposed Discharge Date: 04/04/18
== END 2018-04-04 16:45 | disposition home or self-care (01) ==
LOC: SDC 17:26 → MS3 04-04 08:31
PROVIDERS: Admitting Provider Surgery; Family Provider Family Medicine; PCP Family Medicine; Referring Provider Surgery; Visit Provider Surgery
PROC: (CPT 14040; principal; 2018-04-03 09:10)
DX: C44.311 Basal cell carcinoma of skin of nose (principal); K21.9 Gastro-esophageal reflux disease without esophagitis; J45.909 Unspecified asthma, uncomplicated; F41.9 Anxiety disorder, unspecified; F32.9 Major depressive disorder, single episode, unspecified; Z23 Encounter for immunization; Z79.899 Other long term (current) drug therapy
CPT/HCPCS: 14040; 21235; 30620; 80048; 84134; 85027; 88305; 93005; 96365; 96366; 96372; 96375; 96376; 99218; J7120; 90686; G0378; G0379; J2310; J2405

== ENCOUNTER 2018-04-24 07:43 | Day surgery (SDC) | payer MEDICARE, OTHER, SELFPAY ==
[2018-04-24] VITALS (9 sets, daily range): BP systolic 93–153; BP diastolic 51–74; PULSE 71–96; RESP 16–18; TEMP 36.4–37.3; O2SAT 92–95; BMI 36.3
[2018-04-24] MEDS: Mupirocin Ointment 22gm Tube 1 APPLIC (13:30)
--- NOTE | 2018-04-24 13:41 | PCM.IMDPSTOP ---
Immediate Post-Op Note Date of Procedure: 04/24/18 Primary Surgeon/Physician: Aleksey Acosta automotive engineering technician: None Pre-Operative Diagnosis: 1. Basal cell carcinoma left nasal tip and lateral sidewall. 2. s/p 1st stage complex nasal reconstruction with right paramedian forehead flap and cartilage grafting from left ear. Post-Operative Diagnosis: Same. Surgery/Procedure Performed:: 2nd stage complex nasal reconstruction basal cell carcinoma left nasal tip and lateral sidewall with division and inset right paramedian forehead flap. Description of Surgical Findings:: 72 year old woman initially presented for evaluation for TBSE. She has concerns about enlarging lesions on her left nasal tip. It was biopsied and found to be a basal cell carcinoma. She underwent excision basal cell carcinoma left nasal tip on 03/07/18. The wound was left open until the final pathology was available. Pathology was negative for residual carcinoma and was completely excised. Wound care was started postop with Silver dressing changes. She presents today for the first stage of her complex nasal reconstruction with a forehead flap and cartilage grafting for support. On 04/03/18, the patient underwent surgical preparation basal cell carcinoma wound left nasal tip and lateral sidewall with excisional debridement and 1st stage complex nasal reconstruction with right paramedian forehead flap and cartilage grafting from left ear. Healing was uneventful and she presents today for the second stage of her complex nasal reconstruction. Today the patient underwent 2nd stage complex nasal reconstruction basal cell carcinoma left nasal tip and lateral sidewall with division and inset right paramedian forehead flap. Estimated Blood Loss: 100 ml. Specimen's removed: None. Drains: None. Type of Anesthesia:: General - Admit VTE Documentation VTE Present on Admission: No VTE Mechan Device Prophylaxis: SCD's VTE Pharm Prophylaxis ordered?: No
--- NOTE | 2018-04-24 13:52 | PCM.DC ---
You will use the following diet at home:: No restrictions Discharge Activity: May Shower - in two days., - - keep head elevated. no heavy lifting. May shower in (days): 2 May resume sexual activity in: No Restrictions Ice area for (Minutes): 5 - as needed for facial swelling. Weight Bearing Status: Weight bearing as tolerated Lifting Restrictions: 10 lbs. Keep extremity elevated above heart level: - - elevate head. Call your doctor if your incision/area has: Continuous Slow Oozing, Sudden Increased Bleeding, Increased Pain/ Swelling, Increased Redness, Foul Smelling Discharge, Swelling at the incision site Call your doctor if you observe: Fever of 101 or Higher, Coldness, Increased Pain, Shortness of breath, Chest pain, Calf discomfort, Uncontrolled pain Suture Line Care: - - apply antibiotic ointment to the suture line daily. Change Dressing in (Days):: 2 - aquacel silver dressing change daily to foreherad. Cleanse incision/area with: - - may get incisions wet in the shower in two days. Allergies/Adverse Reactions: Allergies Sulfa (Sulfonamide Antibiotics) Allergy (Severe, Verified 04/22/18 09:31) ALLERGY Medications to take at Discharge lovastatin 40 mg tablet 40 mg PO QHS 12/25/17 multivitamin tablet 1 tab PO QDAY 12/25/17 pantoprazole 20 mg tablet,delayed release 20 mg PO QDAY 12/25/17 sertraline 100 mg tablet 100 mg PO QDAY 12/25/17 Albuterol Inhaler [Ventolin Hfa] 1 - 2 puff INHALATION Q4H PRN PRN 03/05/18 Omega3/Dha/Epa/Fish Oil/Vit D3 [[place]-3 + Vitamin D3 Softgel] 1 ea PO DAILY 03/05/18 gabapentin 300 mg capsule 300 mg PO BID #60 cap 04/07/18 Clindamycin HCl [Cleocin] 300 mg PO TID #15 cap 04/24/18 The following prescriptions were given: Clindamycin HCl [Cleocin] 300 mg PO TID #15 cap Primary Care Physician: Bandar Alvares MD [Primary Care Provider] - Test Results: Test results from this visit will be discussed in further detail at your follow-up appointment, if applicable. Please Follow Up With: Aleksey Acosta MD When: one week. call [phone] for appt. Proposed Discharge Date: 04/24/18
--- NOTE | 2018-04-24 13:57 | DCINST_ITS ---
You will use the following diet at home:: No restrictions Discharge Activity: May Shower - in two days., - - keep head elevated. no heavy lifting. May shower in (days): 2 May resume sexual activity in: No Restrictions Ice area for (Minutes): 5 - as needed for facial swelling. Weight Bearing Status: Weight bearing as tolerated Lifting Restrictions: 10 lbs. Keep extremity elevated above heart level: - - elevate head. Call your doctor if your incision/area has: Continuous Slow Oozing, Sudden Increased Bleeding, Increased Pain/ Swelling, Increased Redness, Foul Smelling Discharge, Swelling at the incision site Call your doctor if you observe: Fever of 101 or Higher, Coldness, Increased Pain, Shortness of breath, Chest pain, Calf discomfort, Uncontrolled pain Suture Line Care: - - apply antibiotic ointment to the suture line daily. Change Dressing in (Days):: 2 - aquacel silver dressing change daily to foreherad. Cleanse incision/area with: - - may get incisions wet in the shower in two days. Allergies/Adverse Reactions: Allergies Sulfa (Sulfonamide Antibiotics) Allergy (Severe, Verified 04/22/18 09:31) ALLERGY Medications to take at Discharge lovastatin 40 mg tablet 40 mg PO QHS 12/25/17 multivitamin tablet 1 tab PO QDAY 12/25/17 pantoprazole 20 mg tablet,delayed release 20 mg PO QDAY 12/25/17 sertraline 100 mg tablet 100 mg PO QDAY 12/25/17 Albuterol Inhaler [Ventolin Hfa] 1 - 2 puff INHALATION Q4H PRN PRN 03/05/18 Omega3/Dha/Epa/Fish Oil/Vit D3 [[place]-3 + Vitamin D3 Softgel] 1 ea PO DAILY 03/05/18 gabapentin 300 mg capsule 300 mg PO BID #60 cap 04/07/18 Clindamycin HCl [Cleocin] 300 mg PO TID #15 cap 04/24/18 The following prescriptions were given: Clindamycin HCl [Cleocin] 300 mg PO TID #15 cap Primary Care Physician: Bandar Alvares MD [Primary Care Provider] - Test Results: Test results from this visit will be discussed in further detail at your follow- up appointment, if applicable. Please Follow Up With: Aleksey Acosta MD When: one week. call [phone] for appt. Proposed Discharge Date: 04/24/18
--- NOTE | 2018-04-26 00:14 | OP.PCM_ITS ---
Report of Operation Date of Procedure: 04/24/18 Pre-Operative Diagnosis: 1. Basal cell carcinoma left nasal tip and lateral sidewall. 2. s/p 1st stage complex nasal reconstruction with right paramedian forehead flap and cartilage grafting from left ear. Post-Operative Diagnosis: Same. Surgery/Procedure Performed:: 2nd stage complex nasal reconstruction basal cell carcinoma left nasal tip and lateral sidewall with division and inset right paramedian forehead flap. Description of Surgical Findings:: 72 year old woman initially presented for evaluation for TBSE. She has concerns about enlarging lesions on her left nasal tip. It was biopsied and found to be a basal cell carcinoma. She underwent excision basal cell carcinoma left nasal tip on 03/07/18. The wound was left open until the final pathology was available. Pathology was negative for residual carcinoma and was completely excised. Wound care was started postop with Silver dressing changes. She presents today for the first stage of her complex nasal reconstruction with a forehead flap and cartilage grafting for support. On 04/03/18, the patient underwent surgical preparation basal cell carcinoma wound left nasal tip and lateral sidewall with excisional debridement and 1st stage complex nasal reconstruction with right paramedian forehead flap and cartilage grafting from left ear. Healing was uneventful and she presents today for the second stage of her complex nasal reconstruction. Patient was informed of the risks and complications of the procedure including alternatives to surgery. These were discussed with the patient personally. Patient voices understanding and wishes to proceed. Some of the risks and complications were included in a form from the [employer]. dairy management specialist: None Type of Anesthesia:: General Specimen's removed: None. Drains: None. Estimated Blood Loss (mL): 100 ml. Description of Procedure: Patient was taken to OR in supine position and was placed under general anesthesia. The face was prepped and draped in the usual fashion. SCD's were placed for DVT prophylaxis. Perioperative antibiotics were given intravenously. Using xylocaine with epinephrine, the nose and forehead were infiltrated for postop pain relief. I incised the forehead flap pedicle in the middle. I then debrided the base of the flap in the medial eyebrow area. I then further debrided the flap pedicle down to its base and closed the defect in the medial eyebrow area with 5-0 Monocryl interrupted sutures in the deep dermis and subcutaneous tissue. The skin was approximated with 6-0 Prolene simple interrupted sutures. The previous forehead sutures were also removed today. I used a curette and debrided the forehead wound by the hairline. That wound was redressed with Silver dressing and 2x2 gauze to be done daily. I then further debrided the flap pedicle on the nose and debrided the remaining nasal wound of granulation tissue to aid in wound closure. Some of the subcutaneous tissue on the flap was conservatively debrided to aid in the inset of the flap. I then measured where the flap would be inset into the wound and marked it. Incision was made and the forehead flap was inset into the nasal wound. It was closed with 5-0 Monocryl vertical mattress and simple interrupted sutures. Good nasal contour was noted at the end of the procedure. Good vascularity was noted on the forehead flap. Antibiotic ointment was applied to the nasal suture line and the right medial eyebrow suture line. Patient tolerated the procedure well and was sent to PACU in satisfactory condition. Patient will be sent home on antibiotics and pain medication. Patient will keep her head elevated during the initial postop period and be on a lifting restriction as well. Patient will followup in a week for a wound check and for removal of the sutures and for a Silver dressing change. Grafts/Implants Used: None. - Complications None. - Admit VTE Documentation VTE Present on Admission: No VTE Mechan Device Prophylaxis: SCD's VTE Pharm Prophylaxis ordered?: No Code Visit Surgery Charges CPT - 40870 ICD-10 - C44.311, S01.20xA
== END 2018-04-24 16:24 | disposition home or self-care (01) ==
LOC: SDC 07:44 → AC 07:45
PROVIDERS: Family Provider Family Medicine; PCP Family Medicine; Referring Provider Surgery; Visit Provider Surgery
PROC: (CPT 30420; principal; 2018-04-24 09:40)
DX: C44.311 Basal cell carcinoma of skin of nose (principal); E78.00 Pure hypercholesterolemia, unspecified; J45.909 Unspecified asthma, uncomplicated; R06.02 Shortness of breath; R35.0 Frequency of micturition; R32 Unspecified urinary incontinence
CPT/HCPCS: 00160; 21235; 30620; J7120; J2405

== ENCOUNTER → 2018-10-22 12:37 | Outpatient (CLI) | payer MEDICARE, OTHER, SELFPAY ==
[2018-05-29 15:10] VITALS: BMI 36.3
--- NOTE | 2018-10-22 12:40 | ECHOD_ITS ---
Reason For Study: MURMUR Procedure This was a 2D Doppler, Color Flow transthoracic echocardiogram. Exam performed in department. Left Ventricle Normal size and thickness. The estimated ejection fraction is 75 %. Stage 1 diastolic dysfunction. No regional wall motion abnormalities noted. Right Ventricle Normal size and thickness. Normal systolic function. Atria Normal left atrium. Normal right atrium. Normal atrial septum. Mitral Valve The mitral valve is structurally normal. No prolapse or stenosis seen. Tricuspid Valve Normal tricuspid valve. Trivial tricuspid valve insufficiency. Right ventricular systolic pressure estimated to be 32 mmHg. Aortic Valve Normal aortic valve. Trisinus/trileaflet aortic valve. Pulmonic Valve Normal pulmonic valve. Great Vessels Normal aortic root. Normal arch. Normal inferior vena cava. Inferior vena cava collapse with sniff. Pericardium/Pleural Trivial pericardial effusion. There are no echocardiographic indications of cardiac tamponade. MMode/2D Measurements & Calculations LVIDd: 4.1 cm IVSd: 1.2 cm Ao root diam: 3.4 cm LVIDs: 2.7 cm LVPWd: 1.1 cm RVDd: 2.6 cm FS: 35.7 % LAV(MOD-bp): 26.1 ml LA A4 area: 12.9 cm2 LA dimension(2D): 3.9 cm LAV(MOD-bp) Indexed: 13.2 ml/m2 LAV(MOD-sp2): 19.8 ml LAV(MOD-sp4): 32.2 ml RA A4 area: 10.0 cm2 Time Measurements MV dec time: 0.30 sec Doppler Measurements & Calculations MV E max bay: 98.6 cm/sec Lat Peak E' Bay: 6.3 cm/sec Med Peak E' Bay: 4.3 cm/sec MV A max bay: 122.8 cm/sec E/E' lat: 15.8 E/E' med: 23.2 MV E/A: 0.80 Ao V2 max: 184.0 cm/sec LV V1 max: 183.5 cm/sec PA V2 max: 159.2 cm/sec Ao max P.6 mmHg LV V1 max P.5 mmHg TR max bay: 255.8 cm/sec TR max P.2 mmHg Interpretation Summary The estimated ejection fraction is 75 %. Stage 1 diastolic dysfunction. Trivial tricuspid valve insufficiency. Right ventricular systolic pressure estimated to be 32 mmHg. Trivial pericardial effusion. jCompared to echo report dated 07/07/2010, no appreciable changes noted. Ordering Physician: Bandar Alvares Referring Physician: Bandar Alvares Performed By: Madiha Dukes RDCS, RVT
== END ==
PROVIDERS: Family Provider Family Medicine; PCP Family Medicine; Referring Provider Family Medicine; Visit Provider Family Medicine
DX: R01.1 Cardiac murmur, unspecified (principal)
CPT/HCPCS: 93306

== ENCOUNTER → 2019-04-20 13:52 | Outpatient (CLI) | payer MEDICARE, OTHER, SELFPAY ==
[2018-12-04 13:51] VITALS: BMI 36.3
[2019-04-20 16:13] LABS: Absolute Lymphocyte Count 2.17 X10^3/uL (0.83-4.51); Absolute Neutrophil Count 4.6 X10^3/uL (2.0-7.7); Basophil# 0.07 X10^3/uL; Basophil% 0.9 % (0-1); Eosinophil# 0.25 X10^3/uL; Eosinophils% 3.3 % (0-5); Hematocrit 36.1 % (37-47); Hemoglobin 11.6 g/dL (12.0-15.0); Lymphocyte # 2.17 X10^3/ul (4.0); Lymphocyte % 28.4 % (19-41); Mean Corp Hgb Conc 32.1 g/dL (32-36); Mean Platelet Vol. 11.8 fl (6.2-12.0); Monocyte# 0.58 X10^3/uL; Monocyte% 7.6 % (0-10); NRBC Flagged by Analyzer 0 % (0-5); Neutrophil # 4.55 X10^3/uL (2.7-7.7); Neutrophil % 59.5 % (47-70); Platelet Count 266 K/mm3 (150-450); RBC Distribution Width SD 41.4 fl (35.1-43.9); Red Blood Count 4.15 M/mm3 (4.2-5.4); White Blood Count 7.6 K/mm3 (4.4-11.0)
[2019-04-20 16:30] LABS: ALB/GLOB Ratio 1.1 RATIO (0.9-2.4); AST(SGOT) 16 U/L (15-37); Alanine Aminotransfer ALT/SGPT 34 U/L (13-56); Albumin, Serum 3.8 g/dL (3.2-5.0); Alkaline Phosphatase 104 U/L (45-117); Anion Gap 7 (5-15); BUN 13 mg/dL (7-18); BUN/Creat Ratio 13.1 RATIO (10-20); Calcium,Total 8.4 mg/dL (8.5-10.1); Chloride 106 mmol/L (98-107); Creatinine, Serum 0.99 mg/dL (0.55-1.02); EST Glomerular Filtration Rate 59 mL/min (>60); Est Glom Filt Rate - Afr Amer 71 mL/min (>60); Globulin 3.6 g/dL (2.2-4.2); Glucose 124 mg/dL (74-106); Potassium 3.5 mmol/L (3.5-5.1); Protein, Total 7.4 g/dL (6.4-8.2); Sodium Level 140 mmol/L (136-145)
[2019-04-22 20:07] LABS: HEPATITIS B SURFACE AG Negative (Negative); Hepatitis A AB, Total Negative (Negative); Hepatitis A IgM Antibody Negative (Negative); Hepatitis B Core AB IgM Negative (Negative); Hepatitis B Core Ab Total Negative (Negative); Hepatitis C Ab <0.1 s/co ratio (0.0-0.9); QNTFERON TB Mitogen Value > 10.00 IU/mL (.); QNTFERON TB Nil Value 0.06 IU/mL (.); QNTFERON TB1+ Ag Value 0.11 IU/mL (.); QNTFERON TB2+ Ag Value 0.09 IU/mL (.)
[2019-04-22 20:17] LABS: Hep B Surface Antibodies Non Reactive (.); QNTIFERON TB Positive Criteria Negative (Negative)
== END ==
PROVIDERS: Family Provider Family Medicine; PCP Family Medicine; Referring Provider Dermatology Pediatric Dermatology; Visit Provider Dermatology Pediatric Dermatology
DX: L82.1 Other seborrheic keratosis (principal); D22.5 Melanocytic nevi of trunk; L81.4 Other melanin hyperpigmentation; Z08 Encounter for follow-up examination after completed treatment for malignant neoplasm; Z85.828 Personal history of other malignant neoplasm of skin; L57.8 Other skin changes due to chronic exposure to nonionizing radiation; L40.0 Psoriasis vulgaris; L40.8 Other psoriasis
CPT/HCPCS: 36415; 80053; 85025; 86480; 86704; 86705; 86706; 86708; 86709; 86803; 87340

== ENCOUNTER → 2020-10-03 09:40 | Outpatient (CLI) | payer MEDICARE, OTHER, SELFPAY ==
[2018-12-04 13:51] VITALS: BMI 36.3
--- NOTE | 2020-10-03 09:43 | CDU_ITS ---
Reason For Study: Dizziness Rt. Velocities/BP Lt. Velocities/BP Prox CCA 69.5/10.8 cm/sec. Prox CCA 94.3/12.1 cm/sec. Mid CCA 82.6/8.2 cm/sec. Mid CCA 95.6/16 cm/sec. Dist CCA 79.9/12.1 cm/sec. Dist CCA 86.5/13.4 cm/sec. Prox ICA 77.3/12.1 cm/sec. Prox ICA 74.7/12.1 cm/sec. Mid ICA 107.3/18.6 cm/sec. Mid ICA 95.6/12.1 cm/sec. Dist ICA 96.9/23.9 cm/sec. Dist ICA 82.9/16.6 cm/sec. Rt. ICA/CCA = 1.34. Lt. ICA/CCA = 1.01. Prox ECA 102.1/5.6 cm/sec. Prox ECA 106/9.5 cm/sec. Rt. Vert. 60.4/8.2 cm/sec. Lt. Vert. 75.1/13.5 cm/sec. Right Extracranial There is homogeneous, smooth atherosclerotic plaque noted in the right common carotid artery. There is homogeneous, smooth atherosclerotic plaque noted in the right internal carotid artery. There is no significant atherosclerotic plaque noted in the right external carotid artery. Antegrade flow is noted in the right vertebral artery. Left Extracranial There is homogeneous, smooth atherosclerotic plaque noted in the left common carotid artery. There is homogeneous, smooth atherosclerotic plaque noted in the left internal carotid artery. There is intimal thickening but no significant atherosclerotic plaque noted in the left external carotid artery. Antegrade flow is noted in the left vertebral artery. Procedure Carotid Duplex [id number]. This is a Carotid Duplex examination using B-mode, color flow and specral Doppler. The study was technically difficult. Exam performed in department. VL/Carotid Duplex Ultrasound Interpretation Summary Minimal smooth plaque at the proximal right internal carotid artery with less t [place] 50% stenosis Less than 50% stenosis right external carotid artery Minimal smooth plaque at the proximal left internal carotid artery with less th an 50% stenosis Less than 50% stenosis left external carotid artery Patent and antegrade vertebral arteries bilaterally Ordering Physician: Bandar Alvares Referring Physician: Bandar Alvares Performed By: Tsering Martinez RVT
--- NOTE | 2020-10-03 09:43 | ECHOD_ITS ---
Reason For Study: [place]mur Procedure This was a 2D Doppler, Color Flow transthoracic echocardiogram. The study was technically difficult. Exam performed in department. Left Ventricle Normal LV size. Left ventricular systolic function is normal. The estimated ejection fraction is 70 %. Diastolic function is indeterminate. No regional wall motion abnormalities noted. Right Ventricle Normal RV size. Normal systolic function. Atria The left atrium is mildly enlarged. Normal right atrium. No doppler evidence for ASD. Mitral Valve There is no mitral annular calcification. Normal mitral valve. Trivial mitral valve insufficiency. Tricuspid Valve Normal tricuspid valve. Trivial tricuspid valve insufficiency. Right ventricular systolic pressure estimated to be 27 mmHg. Aortic Valve Trisinus/trileaflet aortic valve. Mild focal aortic valve calcification. Pulmonic Valve The pulmonic valve is not well visualized. Great Vessels Normal sized aortic root. Pericardium/Pleural No pericardial effusion. Epicardial fat. MMode/2D Measurements & Calculations LVIDd: 4.2 cm IVSd: 1.2 cm Ao root diam: 3.4 cm LVIDs: 2.0 cm LVPWd: 1.3 cm FS: 51.9 % LAV(MOD-bp): 50.5 ml LVAd ap4: 22.2 cm2 SV(MOD-sp4): 38.7 ml LAV(MOD-bp) Indexed: 25.4 ml/m2 LVLd ap4: 7.1 cm LAV(MOD-sp2): 47.5 ml EDV(MOD-sp4): 56.4 ml LAV(MOD-sp4): 51.0 ml EDV(sp4-el): 58.7 ml LVAs ap4: 11.1 cm2 LVLs ap4: 5.9 cm ESV(MOD-sp4): 17.7 ml ESV(sp4-el): 18.0 ml EF(MOD-sp4): 68.6 % EF(sp4-el): 69.4 % SV(sp4-el): 40.7 ml LA A4 area: 17.7 cm2 LA dimension(2D): 3.6 cm RA A4 area: 10.7 cm2 Time Measurements MV dec time: 0.27 sec Doppler Measurements & Calculations MV E max bay: 121.1 cm/sec Lat Peak E' Bay: 5.6 cm/sec Med Peak E' Bay: 3.5 cm/sec MV A max bay: 135.7 cm/sec E/E' lat: 21.6 E/E' med: 34.7 MV E/A: 0.89 MV V2 max: 141.2 cm/sec MV P1/2t max bay: 118.5 cm/sec Ao V2 max: 160.7 cm/sec MV max P.0 mmHg MV P1/2t: 80.3 msec Ao max P.3 mmHg MV V2 mean: 81.4 cm/sec Ao V2 mean: 124.3 cm/sec MV mean P.0 mmHg MV dec slope: 432.0 cm/sec2 Ao mean P.5 mmHg MV V2 VTI: 39.6 cm MVA(P1/2t): 2.7 cm2 Ao V2 VTI: 37.6 cm LV V1 max: 152.8 cm/sec PA V2 max: 144.2 cm/sec TR max bay: 243.5 cm/sec LV V1 max P.3 mmHg TR max P.7 mmHg ECHO/Echo Complete Interpretation Summary The study was technically difficult. Left ventricular systolic function is normal. The estimated ejection fraction is 70 %. The left atrium is mildly enlarged. Trivial mitral valve insufficiency. Trivial tricuspid valve insufficiency. Mild focal aortic valve calcification. Epicardial fat. Right ventricular systolic pressure estimated to be 27 mmHg. Diastolic function is indeterminate. Ordering Physician: Bandar Alvares Referring Physician: Bandar Alvares Performed By: Aracelis Rodriguez, CHELSEA, RVT
== END ==
PROVIDERS: PCP Family Medicine; Referring Provider Family Medicine; Visit Provider Family Medicine
DX: R01.1 Cardiac murmur, unspecified (principal); R42 Dizziness and giddiness; R00.2 Palpitations
CPT/HCPCS: 93225; 93226; 93306; 93880

== ENCOUNTER → 2021-03-13 15:02 | Outpatient (CLI) | payer MEDICARE, OTHER, SELFPAY ==
[2021-03-13 17:49] LABS: Absolute Lymphocyte Count 2.42 X10^3/uL (0.83-4.51); Absolute Neutrophil Count 4.3 X10^3/uL (2.0-7.7); Basophil# 0.05 X10^3/uL; Basophil% 0.7 % (0-1); Eosinophil# 0.26 X10^3/uL; Eosinophils% 3.5 % (0-5); Hematocrit 36.2 % (37-47); Hemoglobin 11.1 g/dL (12.0-15.0); Lymphocyte # 2.42 X10^3/ul (0.83-4.51); Lymphocyte % 32.1 % (19-41); Mean Corp Hgb Conc 30.7 g/dL (32-36); Mean Corpuscular Hgb 25.8 pg (27.0-32.0); Mean Corpuscular Volume 84.2 fL (81-99); Mean Platelet Vol. 11.7 fl (6.2-12.0); Monocyte# 0.51 X10^3/uL; Monocyte% 6.8 % (0-10); NRBC Flagged by Analyzer 0 % (0-5); Neutrophil # 4.26 X10^3/uL (2.7-7.7); Neutrophil % 56.5 % (47-70); Platelet Count 297 K/mm3 (150-450); RBC Distribution Width CV 14.2 % (11.6-14.6); RBC Distribution Width SD 43.6 fl (35.1-43.9); White Blood Count 7.5 K/mm3 (4.4-11.0)
[2021-03-13 18:20] LABS: AST(SGOT) 19 U/L (15-37); Alanine Aminotransfer ALT/SGPT 32 U/L (13-56); Albumin, Serum 3.8 g/dL (3.2-5.0); Alkaline Phosphatase 101 U/L (45-117); Anion Gap 6 (5-15); BUN 15 mg/dL (7-18); BUN/Creat Ratio 15.6 RATIO (10-20); Calcium,Total 8.7 mg/dL (8.5-10.1); Chloride 104 mmol/L (98-107); Creatinine, Serum 0.96 mg/dL (0.55-1.02); EST Glomerular Filtration Rate 61 mL/min (>60); Est Glom Filt Rate - Afr Amer 73 mL/min (>60); Globulin 3.7 g/dL (2.2-4.2); Glucose 98 mg/dL (74-106); Potassium 3.7 mmol/L (3.5-5.1); Protein, Total 7.5 g/dL (6.4-8.2); Sodium Level 139 mmol/L (136-145)
[2021-03-17 06:08] LABS: QNTFERON TB Mitogen Value > 10.00 IU/mL (.); QNTFERON TB Nil Value 0.07 IU/mL (.); QNTFERON TB1+ Ag Value 0.06 IU/mL (.); QNTFERON TB2+ Ag Value 0.08 IU/mL (.)
[2021-03-17 10:00] LABS: QNTIFERON TB Positive Criteria Negative (Negative)
== END ==
PROVIDERS: PCP Family Medicine; Referring Provider Physician Assistant Medical; Visit Provider Physician Assistant Medical
DX: L40.0 Psoriasis vulgaris (principal); L57.0 Actinic keratosis; Z79.899 Other long term (current) drug therapy
CPT/HCPCS: 36415; 80053; 85025; 86480

== ENCOUNTER → 2022-04-20 | Outpatient (CLI) | payer MEDICARE, OTHER, SELFPAY | END | disposition home or self-care (01) | LOC: MTLAB 08:41 | PROVIDERS: PCP Family Medicine; Referring Provider Physician Assistant Medical; Visit Provider Physician Assistant Medical | DX: L40.0 Psoriasis vulgaris (principal); L57.0 Actinic keratosis; L57.8 Other skin changes due to chronic exposure to nonionizing radiation; L28.0 Lichen simplex chronicus; Z79.899 Other long term (current) drug therapy | CPT/HCPCS: 36415; 86480 ==

== ENCOUNTER → 2022-10-30 | Outpatient (CLI) | payer MEDICARE, OTHER, SELFPAY ==
--- NOTE | 2022-10-30 08:50 | BONBX_PTH ---
PATIENT: GAVIN LOPEZ LOC: [facility] U#:[id number] AGE/SX: 76/F ROOM: RE10/30/[address]: Dr. Charly Lino DO : 1945 BED: DIS: 10/30/2022 SPEC #: [id number] RECD: 10/30/22 15:00 STATUS: MILTON REAlexis #: [id number] TU: 10/30/22 08:[address]: Charly Lino DEPT: SURGICAL PATHOLOGY RECD BY: Christine Burciaga ENTERED: 10/31/22 10:46 SP TYPE: Bone OTHR DR: Dr. Bandar Alvares MD [facility] Tissues: Vertebra, NOS Procedures: Decalcification bone/plaque Surgery Specimen Level V HEADER OPERATION: T12 kyphoplasty PRE-OP DIAGNOSIS: Wedge compression fracture T11-T12 vertebra TISSUE SUBMITTED: Vertebral body T12 MICROSCOPIC DIAGNOSIS Vertebral body, T12, kyphoplasty: A piece of bone with reactive changes, negative for malignancy. See comment. JOSEMANUEL:paola 11/01/2022 COMMENT Trilineage hematopoiesis is noted. Clinical correlation and appropriate follow up are necessary. MICROSCOPIC DESCRIPTION Slides are reviewed. GROSS DESCRIPTION Received in fixative is one container labeled with the patient's name and designated vertebral body T12. The specimen consists of an elongated piece of bone measuring 2.0 cm in length and 0.2 cm in diameter. The specimen is submitted in its entirety in one cassette after decalcification. / JOSEMANUEL:paola 10/31/2022 TC:5 CPT: 23675, 24877
== END | disposition home or self-care (01) ==
LOC: LABSPEC 16:31
PROVIDERS: PCP Family Medicine; Referring Provider Orthopaedic Surgery; Visit Provider Orthopaedic Surgery
DX: M48.54XA Collapsed vertebra, not elsewhere classified, thoracic region, initial encounter for fracture (principal)
CPT/HCPCS: 88307; 88311

== ENCOUNTER → 2024-04-27 | Outpatient (CLI) | payer MEDICARE, OTHER, SELFPAY ==
--- NOTE | 2024-04-27 08:53 | EKG12_ITS ---
Test Reason : PREOP Blood Pressure : */* mmHG Vent. Rate : 72 BPM Atrial Rate : 72 BPM P-R Int : 178 ms QRS Dur : 88 ms QT Int : 404 ms P-R-T Axes : 60 36 61 degrees QTcB Int : 442 ms Normal sinus rhythm Normal ECG Confirmed by RAMIREZ CHE, RADHA ([id number]), visual effects editor ERIC EDWARDS ([id number]) on 04/27/2024 10:00:02 AM Referred By: Wilder Greene Confirmed By: RADHA GUZMÁN MD
--- NOTE | 2024-04-27 09:12 | RAD_ITS ---
INDICATION: PRE OP EXAMINATION/TECHNIQUE: X-RAY - XR Chest 2 Views COMPARISON: Prior study dated: 05/23/2010 FINDINGS: LINES/DEVICES: None. LUNGS: No consolidation, edema or effusion. No pneumothorax. MEDIASTINUM AND CARDIOVASCULAR STRUCTURES: Cardiac silhouette not enlarged. Central airways and mediastinal contour are unremarkable. BONES AND SOFT TISSUES: Compression fracture of T12 vertebra with vertebroplasty. RAD/Chest PA and Lateral IMPRESSION: No radiographic evidence of acute cardiopulmonary disease. Electronically Signed: Chester Rodrigues MD at 10:58 EST ,
== END | disposition home or self-care (01) ==
LOC: PSN 08:44
PROVIDERS: PCP Nurse Practitioner Family; Referring Provider Orthopaedic Surgery; Visit Provider Orthopaedic Surgery
DX: Z01.818 Encounter for other preprocedural examination (principal); M17.11 Unilateral primary osteoarthritis, right knee
CPT/HCPCS: 71046; 87077; 87081; 93005

== ENCOUNTER → 2024-05-06 | Outpatient (CLI) | payer MEDICARE, OTHER, SELFPAY ==
[2024-05-06 15:26] LABS: Absolute Lymphocyte Count 2.21 X10^3/uL (0.83-4.51); Absolute Neutrophil Count 6.1 X10^3/uL (2.0-7.7); Basophil# 0.03 X10^3/uL; Basophil% 0.3 % (0-1); Eosinophil# 0.16 X10^3/uL; Eosinophils% 1.8 % (0-5); Hematocrit 37.6 % (37-47); Hemoglobin 12.1 g/dL (12.0-15.0); Lymphocyte # 2.21 X10^3/ul (0.83-4.51); Lymphocyte % 24.3 % (19-41); Mean Corp Hgb Conc 32.2 g/dL (32-36); Mean Corpuscular Hgb 28.3 pg (27.0-32.0); Mean Corpuscular Volume 87.9 fL (81-99); Mean Platelet Vol. 11.3 fl (6.2-12.0); Monocyte# 0.53 X10^3/uL; Monocyte% 5.8 % (0-10); NRBC Flagged by Analyzer 0 % (0-5); Neutrophil # 6.12 X10^3/uL (2.7-7.7); Neutrophil % 67.5 % (47-70); Platelet Count 293 K/mm3 (150-450); RBC Distribution Width CV 12.9 % (11.6-14.6); RBC Distribution Width SD 41.1 fl (35.1-43.9); Red Blood Count 4.28 M/mm3 (4.2-5.4); White Blood Count 9.1 K/mm3 (4.4-11.0)
[2024-05-06 16:30] LABS: Albumin, Serum 3.7 g/dL (3.2-5.0); Anion Gap 6 (5-15); BUN 14 mg/dL (7-18); BUN/Creat Ratio 15.1 RATIO (10-20); Chloride 106 mmol/L (98-107); Creatinine, Serum 0.93 mg/dL (0.55-1.02); EST Glomerular Filtration Rate 62 mL/min (>60); Est Glom Filt Rate - Afr Amer 76 mL/min (>60); Glucose 144 mg/dL (74-106); Potassium 3.7 mmol/L (3.5-5.1); Sodium Level 139 mmol/L (136-145)
== END | disposition home or self-care (01) ==
LOC: LAB 14:13
PROVIDERS: PCP Nurse Practitioner Family; Referring Provider Orthopaedic Surgery; Visit Provider Orthopaedic Surgery
DX: Z01.818 Encounter for other preprocedural examination (principal); M17.11 Unilateral primary osteoarthritis, right knee; I10 Essential (primary) hypertension; Z01.810 Encounter for preprocedural cardiovascular examination; Z01.811 Encounter for preprocedural respiratory examination
CPT/HCPCS: 36415; 80048; 82040; 85025

== ENCOUNTER → 2024-05-11 | Outpatient (CLI) | payer MEDICARE, OTHER, SELFPAY ==
[2024-05-11 15:18] LABS: Hemoglobin A1c 6.2 % (3.8-5.6)
== END | disposition home or self-care (01) ==
LOC: LAB 12:33
PROVIDERS: PCP Nurse Practitioner Family; Referring Provider Orthopaedic Surgery; Visit Provider Orthopaedic Surgery
DX: R73.09 Other abnormal glucose (principal)
CPT/HCPCS: 36415; 83036

== ENCOUNTER → 2024-05-18 | Outpatient (CLI) | payer MEDICARE, OTHER, SELFPAY ==
--- NOTE | 2024-05-18 | KNEE_PTH ---
PATIENT: GAVIN LOPEZ LOC: [facility] U#:[id number] AGE/SX: 78/F ROOM: RE05/18/[address]: Dr. Wilder Greene MD : 1945 BED: DIS: 05/18/2024 SPEC #: [id number] RECD: 05/19/24 07:13 STATUS: MILTON REAlexis #: [id number] TU: 05/18/24 00:[address]: Wilder Greene DEPT: SURGICAL PATHOLOGY RECD BY: Moshe Mercado ENTERED: 05/19/24 07:14 SP TYPE: TOTAL KNEE OTHR DR: Tsering Lin, CONTRACTING EXECUTIVE-C Tissues: Knee, NOS Procedures: Decalcification bone/plaque Surgery Specimen Level IV HEADER OPERATION: Right total knee replacement PRE-OP DIAGNOSIS: Unilateral primary osteoarthritis, right knee, varus deformity, not elsewhere classified, right knee TISSUE SUBMITTED: Right knee bone and tissue MICROSCOPIC DIAGNOSIS Bone and soft tissue, right knee, total knee replacement/resection: Pieces of bone with degenerative osteoarthritic changes. Fragments of fibrocartilaginous tissue and reactive synovial tissue. SJ: 05/22/2024 MICROSCOPIC DESCRIPTION Slides are reviewed. GROSS DESCRIPTION Received is one container designated bone and soft tissue right knee. The specimen consists of multiple fragments of bettencourt-yellow bone measuring in aggregate 10.0 x 8.0 x 3.0cm. Also in the specimen container are multiple fragments of yellow-white soft tissue measuring in aggregate 7.0 x 6.0 x 2.0 cm. A number of bony fragments contain articular surfaces consistent with tibial plateau and femoral condyle and displaying prominent osteophyte formation, eburnation and bone erosion. Jewel Supervisor sections are submitted in two cassettes as follows: 1 - soft tissue, 2 - bone after decalcification. / AM. 05/19/2024 TC:5 CPT: 99934, 51525
== END | disposition home or self-care (01) ==
LOC: LABSPEC 16:17
PROVIDERS: PCP Nurse Practitioner Family; Referring Provider Orthopaedic Surgery; Visit Provider Orthopaedic Surgery
DX: M17.11 Unilateral primary osteoarthritis, right knee (principal); M21.161 Varus deformity, not elsewhere classified, right knee
CPT/HCPCS: 88305; 88311